=== PATIENT | male | born 1975 | race African-American/Black ===

== ENCOUNTER 2020-04-14 02:49 | Emergency (ER) | payer OTHER ==
[~2020-04-14] VITALS: Ht 172.7 cm; Wt 77.1 kg
--- NOTE | 2020-04-14 02:49 | NUR ---
PT ALE BLS. TAKEN TO BED 8
[2020-04-14 02:50] VITALS: BP 135/95
--- NOTE | 2020-04-14 03:09 | NUR ---
ERMD AT BEDSIDE FOR MEDICAL EVALUATION.
--- NOTE | 2020-04-14 03:13 | NUR ---
44 y/o male brought in by ambulance, c/o esophageal pain/throat pain of 9/10 that started at the beginning of the week and became severe today. Pt stated that he tried to gargle salt water and that it caused N/V. Pt is laying down in the bed, one side rail is up. Pt is in no acute distress at this time. PMH: none NKA
[2020-04-14] MEDS ORDERED: methylPREDNISolone SS 40 MG in WATER STERILE 1 ML IM ONE (03:20)
[2020-04-14] MEDS ORDERED: diphenhydrAMINE 50 MG/ML VIAL IM ONE (03:20)
[2020-04-14] MEDS ORDERED: WATER STERILE 10 ML MC ONE (03:25)
[2020-04-14] MEDS ORDERED: methylPREDNISolone SS 40 MG/ML VIAL ONE (03:25)
[2020-04-14 04:15] VITALS: BP 135/95
--- NOTE | 2020-04-14 04:15 | NUR ---
Patient discharged with v/s stable. Written and verbal after care instructions given and explained. Patient alert, oriented and verbalized understanding of instructions. Ambulatory with steady gait. All questions addressed prior to discharge. ID band removed. Patient advised to follow up with PMD. Rx of PREDNISONE & BENADRYL given. Patient educated on indication of medication including possible reaction and side effects. Opportunity to ask questions provided and answered.
== END 2020-04-14 04:15 | disposition home or self-care (01) ==
LOC: MED 02:49
DX: R07.0 Pain in throat (principal); R22.1 Localized swelling, mass and lump, neck
CPT/HCPCS: 96372; 99284; J1200; J2920